=== PATIENT | female | born 1955 | race Caucasian/White ===

== ENCOUNTER 2018-03-10 14:11 | Emergency (ER) | payer OTHER ==
[~2018-03-10] VITALS: Ht 162.6 cm; Wt 81.9 kg
[2018-03-10 15:24] LABS: HEMATOCRIT 33.9 % (36.0-46.0); MCH 27.4 PG (29.0-34.0); MCHC 32.4 G/DL (30.0-36.0); MCV 84.5 FL (83-99); PLATELET COUNT 299 K/uL (156-360); RBC DIS.WIDTH-CV 15.5 % (11.8-14.6); RBC DIS.WIDTH-SD 47.7 % (39-53); RED BLOOD COUNT 4.01 M/uL (3.80-5.20); WHITE BLOOD COUNT 13.9 K/uL (4.1-10.2)
[2018-03-10 15:34] LABS: ALBUMIN 4.1 g/dL (3.2-4.8); CHLORIDE 104 mEq/L (99-109); POTASSIUM 3.1 mEq/L (3.7-5.4); SODIUM 141 mEq/L (136-147)
[2018-03-10 15:36] LABS: GLUCOSE 108 mg/dL (70-99); TOTAL PROTEIN 7.5 g/dL (6.4-8.3)
[2018-03-10 15:38] LABS: TOTAL BILIRUBIN 0.5 mg/dL (0.0-1.0)
[2018-03-10 15:40] LABS: ALKALINE PHOSPHATASE 70 IU/L (3-129); CREATININE 0.8 mg/dL (0.6-1.3); GFR ESTIMATE (CALCULATED) > 59 mL/min/
[2018-03-10 15:41] LABS: UREA NITROGEN (BUN) 13 mg/dL (9-23)
[2018-03-10 15:42] LABS: AST (GOT) 18 IU/L (2-34)
[2018-03-10 15:43] LABS: ALT (GPT) 28 IU/L (3-49)
[2018-03-10] MEDS ORDERED: CLEOCIN300 MG PO (17:21)
[2018-03-10] MEDS ORDERED: GUAIFENESIN600 M1 PO (17:21)
[2018-03-10 18:49] VITALS: BP 183/68
== END 2018-03-10 18:50 | disposition home or self-care (01) ==
LOC: EME 14:11
PROVIDERS: Nurse Practitioner Family
DX: J04.0 Acute laryngitis (principal); R59.0 Localized enlarged lymph nodes; L03.221 Cellulitis of neck; J44.9 Chronic obstructive pulmonary disease, unspecified; E11.9 Type 2 diabetes mellitus without complications; Z79.84 Long term (current) use of oral hypoglycemic drugs; Z87.891 Personal history of nicotine dependence; Z88.0 Allergy status to penicillin; Z88.2 Allergy status to sulfonamides
CPT/HCPCS: 70491; 80053; 85027; 99281; 99285; J1100; J7030